=== PATIENT | male | born 1990 | race Caucasian/White ===

== ENCOUNTER 2020-11-28 14:42 | Inpatient (IN) | payer OTHER ==
[2020-11-28 15:46] VITALS: BMI 25.7
[2020-11-28] MEDS ORDERED: ONDANSETRON *ODT* 4 MG TABLET SL PRN (17:05)
[2020-11-28] MEDS ORDERED: hydrOXYzine PAMOATE 25 MG CAPSULE (FP) PO PRN (17:05)
[2020-11-28] MEDS ORDERED: METHOCARBAMOL 500 MG TABLET PO PRN (17:05)
[2020-11-28] MEDS ORDERED: MAG HYDROX/AL HYDROX/SIMETH 30 ML UNIT-DOSE CUP PO PRN (17:05)
[2020-11-28] MEDS ORDERED: IBUPROFEN 400 MG TABLET (FP) PO PRN (17:05)
[2020-11-28] MEDS ORDERED: MAGNESIUM CITRATE 300 ML BOTTLE PO PRN (17:05)
[2020-11-28] MEDS ORDERED: BISMUTH SUBSALICYLATE 524 MG/30 ML PO PRN (17:05)
[2020-11-28] MEDS ORDERED: ACETAMINOPHEN 325 MG TABLET (FP) PO PRN ×2 (17:05)
[2020-11-28] MEDS ORDERED: MAGNESIUM HYDROX 2400MG/30ML ORAL SUSPENSION 30 ML CUP PO PRN (17:05)
[2020-11-28] MEDS ORDERED: MENTHOL/PHENOL 1 EACH UD MM PRN (17:05)
[2020-11-28] MEDS ORDERED: METOPROLOL TARTRATE 50 MG TABLET (FP) PO ONE (17:30)
[2020-11-28] MEDS ORDERED: diazePAM 5 MG TABLET PO ONE (17:30)
[2020-11-28] MEDS: THIAMINE HCL 100 MG TABLET (FP) PO SCH (22:13)
[2020-11-28] MEDS: diazePAM 5 MG TABLET PO SCH (22:13)
[2020-11-28] MEDS: MELATONIN 5 MG TABLETS PO SCH (22:13)
[2020-11-29] MEDS: diazePAM 5 MG TABLET PO PRN ×2 (03:00→15:36)
[2020-11-29] MEDS: diazePAM 5 MG TABLET PO SCH ×4 (05:29→22:35)
[2020-11-29] MEDS: PRENATAL VITAMINS W/ FOLIC ACID TABLET (FP) PO SCH (10:32)
[2020-11-29] MEDS: ESCITALOPRAM OXALATE 10 MG TABLET PO SCH (10:35)
[2020-11-29 14:15] LABS: HEMATOCRIT 45.6 % (35.4-49); HEMOGLOBIN 15.6 GM/dL (11.7-16.9); MCH 30.9 pg (25.7-33.7); MCHC 34.2 g/dl (32.0-35.9); MEAN CELL VOLUME 90.3 fl (80-96); MEAN PLT VOLUME 9.4 fl (7.5-11.1); PLATELET COUNT 219 10^3/uL (134-434); RBC 5.05 M/mm3 (4.00-5.60); RDW 12.7 % (11.9-15.9); WHITE BLOOD COUNT 8.1 K/mm3 (4.0-10.0)
[2020-11-29 14:32] LABS: ALBUMIN 4.5 g/dl (3.4-5.0); BLOOD UREA NITROGEN 10.6 mg/dL (7-18); CALCIUM 9.5 mg/dL (8.5-10.1)
[2020-11-29 14:37] LABS: BILIRUBIN,TOTAL 2.1 mg/dL (0.2-1); TOT PROT 7.9 g/dl (6.4-8.2)
[2020-11-29 14:38] LABS: CREATININE 0.8 mg/dL (0.55-1.3)
[2020-11-29] MEDS: THIAMINE HCL 100 MG TABLET (FP) PO SCH (22:34)
[2020-11-29] MEDS: MELATONIN 5 MG TABLETS PO SCH (22:34)
[2020-11-30] MEDS: diazePAM 5 MG TABLET PO SCH ×3 (05:52→22:21)
[2020-11-30] MEDS: ESCITALOPRAM OXALATE 10 MG TABLET PO SCH (10:26)
[2020-11-30] MEDS: diazePAM 5 MG TABLET PO PRN (10:27)
[2020-11-30] MEDS: PRENATAL VITAMINS W/ FOLIC ACID TABLET (FP) PO SCH (10:27)
[2020-11-30] MEDS: MELATONIN 5 MG TABLETS PO SCH (22:19)
[2020-11-30] MEDS: THIAMINE HCL 100 MG TABLET (FP) PO SCH (22:20)
[2020-12-01] MEDS ORDERED: diazePAM 5 MG TABLET PO SCH (06:00)
[2020-12-01 09:54] VITALS: BP 140/96; PULSE 103; TEMP 97.3
[2020-12-02] MEDS ORDERED: diazePAM 5 MG TABLET PO ONE (06:00)
== END 2020-12-01 09:58 | disposition home or self-care (01) | DRG 897 ==
LOC: YASAS 14:42 → Y3N 17:15
PROVIDERS: ADMIT Allergy & Immunology; ATTEND Allergy & Immunology
PROC: HZ2ZZZZ Detoxification Services for Substance Abuse Treatment (ICD-10-PCS; principal; 2020-11-28)
DX: F10.230 Alcohol dependence with withdrawal, uncomplicated (principal); F10.280 Alcohol dependence with alcohol-induced anxiety disorder; R00.0 Tachycardia, unspecified; Z56.0 Unemployment, unspecified
CPT/HCPCS: 36415; 80053; 85027; 86780; C9803; U0003; U0005